=== PATIENT | male | born 1980 | race Caucasian/White ===

== ENCOUNTER → 2017-05-30 | Outpatient (CLI) | payer SELFPAY ==
[2014-02-11 10:29] VITALS: BMI 28.9
[~2017-05-30] MED LIST: ALBU8.5H12 IH; AZIT-18 PO; CEPH500C24 PO; DIPH-740 PO; IBUP-56 PO; IBUP800T37 PO; IOPAMIDOL 76% 75 ML INFUS BTL 75 ML ONE; LEVO-85 PO; METH4TAB66 PO; OMEP-137 PO; OMEP40CA48 PO; PENI-24 PO; PRED-1 PO; PRED20TA6 PO; RANI-318 PO; RANI-324 PO; SUCR1TAB85 PO; TRAZ150T8 PO
--- NOTE | 2017-05-30 11:53 | RADIOLOGY IMAGING REPORT ---
FACILITY: [facility] - [place] PATIENT NAME: Marcio Talavera : 1980 MR: [id number] V: [id number] EXAM DATE: ORDERING PHYSICIAN: BESS ALLEN TECHNOLOGIST: Location: [facility] Patient: Marcio Talavera : 1980 Visit/Account:[id number] Date of Sevice: 05/30/2017 ABDOMEN/PELVIS W/WO CONTRAST HISTORY: Left upper quadrant pain x7 months TECHNIQUE: Axial images acquired through the abdomen/pelvis both with and without IV contrast.. Marleni nal and sagittal reformatting also performed. Dose Lowering Technique One of the following dose optimization techniques was utilized in the performance of this exam: Autom ated exposure control; adjustment of the mA and/or kV according to the patient's size; or use of an i terative reconstruction technique. Specific details can be referenced in the facility's radiology C T exam operational policy. CONTRAST: 75 mL Isovue-370 COMPARISON: None FINDINGS: Visualized lung bases: Negative. Hepatobiliary: Several subcentimeter hypoattenuating lesions right lobe the liver which may represen t cysts although are too small to characterize. This area of probable focal fatty infiltration adjac ent to the falciform ligament Spleen: Borderline enlarged measuring 14.2 x 9.3 x 10.7 cm there are several accessory splenules Adrenals: Negative. Pancreas: Negative. Kidneys ureters and bladder: 2 mm nonobstructing calculus lower pole of the left kidney Genitalia: Negative. GI: The appendix is visualized does not appear inflamed. There is a focal narrowing seen in the sigmoid colon best appreciated on axial image 108 of series 6 and coronal image 65 of series 8 could represent an area of spasm although clinical correlation neede d. There is mild diverticulosis left-sided colon although no CT evidence of acute diverticulitis Vessels/spaces/nodes: Negative. Bones/soft tissues: There are surgical clips in the scrotum. Small umbilical hernia containing fat Additional findings: None pertinent. IMPRESSION: Several subcentimeter hypoattenuating lesions right lobe of the liver may represent cysts although ar e too small to characterize Spleen is borderline enlarged 2 mm nonobstructing calculus lower pole left kidney There is a focal narrowing seen in the sigmoid colon as detailed above which could represent a focal area of spasm although an annular lesion not excluded Mild diverticulosis left-sided colon although no CT evidence of acute diverticulitis Report Dictated By: Taylor Guajardo MD at 05/30/2017 10:24 AM Report E-Signed By: Taylor Guajardo MD at 05/30/2017 11:48 AM WSN:[email or web address]
== END ==
LOC: CT 01:14
PROVIDERS: ATTEND Surgery
DX: N20.0 Calculus of kidney (principal); K76.89 Other specified diseases of liver; R16.1 Splenomegaly, not elsewhere classified; K57.30 Diverticulosis of large intestine without perforation or abscess without bleeding
CPT/HCPCS: 74178; Q9967

== ENCOUNTER 2017-06-27 01:00 | Outpatient (RCR) | payer SELFPAY ==
[2014-02-11 10:29] VITALS: BMI 28.9
[~2017-06-27 01:00] MED LIST changes: +GOLYTE PO; -IOPAMIDOL 76% 75 ML INFUS BTL 75 ML ONE; -RANI-324 PO; +RANI-366 PO
[2017-06-27] MEDS ORDERED: BARIUM SULFATE 340 GM POWD ONE (08:39)
[2017-06-27] MEDS ORDERED: BARIUM SULFATE 176 GM BTL PO ONE (08:39)
--- NOTE | 2017-06-27 17:28 | RADIOLOGY IMAGING REPORT ---
FACILITY: [facility] PATIENT NAME: Marcio Talavera : 1980 MR: [id number] V: [id number] EXAM DATE: ORDERING PHYSICIAN: BESS ALLEN TECHNOLOGIST: Location: [facility] [place] Patient: Marcio Talavera : 1980 Visit/Account:[id number] Date of Sevice: 06/27/2017 Exam type: UPPER GI W/SMALL BOWEL SERIES History: Left upper quadrant pain, postprandial bloating, early satiety Comparison: None. Findings: Double contrast upper GI series was performed with thick and thin barium a small amount of gastroesop hageal reflux was observed. There is no significant narrowing within the esophagus or evidence of mu cosal erosion. The stomach to bulb and duodenal C-loop appeared unremarkable. The barium was then f ollowed throughout the small bowel to the unremarkable terminal ileum. Transit time to the right-kaitlyn ed colon was one hour and 20 minutes. No mucosal abnormalities were identified. There is no evidenc e of extrinsic mass effect or bowel dilatation. The fluoroscopy dose area product was 1636.09 micro- Robert per meter squared IMPRESSION: 1. Small amount of gastroesophageal reflux otherwise unremarkable upper GI series and small bowel fo llow-through Report Dictated By: Taylor Guajardo MD at 06/27/2017 5:20 PM Report E-Signed By: Taylor Guajardo MD at 06/27/2017 5:23 PM WSN:[email or web address]
--- NOTE | 2017-06-30 09:43 | RADIOLOGY IMAGING REPORT ---
FACILITY: [facility] PATIENT NAME: Marcio Talavera : 1980 MR: [id number] V: [id number] EXAM DATE: ORDERING PHYSICIAN: BESS ALLEN TECHNOLOG[place]: [place] [facility] [place] Marcio Tala[place]a : 1980 Visit/Account:[id number] Date of Sevice: 06/30/2017 GALLBLADDER HISTORY: Postprandial bloating COMPARISON: Gallbladder ultrasound January 25, [address] of abdomen pelvis May 30, 2017 FINDINGS: Gallbladder: Unremarkable; no stones or sludge. Liver: Liver appears unremarkable as imaged. The some small hypodensities in the right lobe of the l iver may have been too close to the dome to be evaluated sonographically due to surrounding lung tiss ue. Statistically they likely represent cysts Common duct: Normal, 4.2 mm diameter. Pancreas: Partially obscured by bowel, visualized aspects unremarkable. Right kidney: Negative. Upper abdominal aorta and IVC: Patent. Ascites: None visualized. IMPRESSION: Unremarkable right upper quadrant ultrasound. The small hypodensity seen in the right lobe the liver on the recent CT were not identified although may have been too close to the dome to be visible sonographically. Statistically they likely represe nt cysts Report Dictated By: Taylor Guajardo MD at 06/30/2017 9:19 AM Report E-Signed By: Taylor Guajardo MD at 06/30/2017 9:39 AM WSN:[email or web address]
[2017-07-04] MEDS ORDERED: MULT-1335 PO (12:38)
== END 2017-06-30 18:00 | disposition home or self-care (01) ==
LOC: US 01:00 → EDSTATUS 06-30 16:13 → US 06-30 18:00
PROVIDERS: ATTEND Surgery
DX: R10.12 Left upper quadrant pain (principal); R14.0 Abdominal distension (gaseous); R68.81 Early satiety; K21.0 Gastro-esophageal reflux disease with esophagitis
CPT/HCPCS: 74245; 76705

== ENCOUNTER 2017-07-06 01:16 | Day surgery (SDC) | payer SELFPAY ==
[2014-02-11 10:29] VITALS: Ht 170.2 cm; Wt 85.7 kg
[~2017-07-06] VITALS: Ht 170.2 cm; Wt 85.7 kg
[2017-07-06] VITALS (7 sets, daily range): BP systolic 107–128; BP diastolic 60–87
[~2017-07-06 01:16] MED LIST changes: +MULT-1335 PO
[2017-07-06] MEDS ORDERED: PROPOFOL EMUL(*) 10MG/ML 20 ML 20 ML ONE ×2 (07:26→11:01)
[2017-07-06] MEDS ORDERED: LIDOCAINE/SOD BICARB 8.4% SYR ID ONE (10:15)
[2017-07-06] MEDS ORDERED: NORMOSOL R SOLN(*) 1000 ML BAG 1,000 ML IV PRN (10:15)
--- NOTE | 2017-07-06 11:20 | Short(Outpt) Discharge Summary ---
Discharge Summary Reason for Hosp/Final Diag: (1) Abnormal CT scan, sigmoid colon Status: Acute Hospital Course & Plan: Colonoscopy completed without problems, normal. (2) Abdominal fullness in left upper quadrant Status: Chronic (3) Left sided abdominal pain Status: Chronic Departure Discharge to: Home, Self Care Discharge Instructions Home Meds Active Scripts Peg/Electrolytes (GOLYTELY SOLUTION) 4,000 Ml Soln, 1 GAL PO ONCE, #1 GAL 0 Refills Prov:BESS ALLEN MD 06/14/17 Reported Medications Multivitamin With Minerals (MULTIPLE VITAMIN) 1 Each Tablet, 1 EACH PO QDAY, TAB 07/04/17 Omeprazole (OMEPRAZOLE) 40 Mg Capsule., 40 MG PO QDAY, CAP 05/20/17 Follow up Referrals: General Surgery - 07/26/17 @ Surgery, General with Bess Allen Md You have a follow up appointment scheduled with Dr. Allen on Tuesday, July 26, 2017, at 3: 30pm. Diet: Regular Activity: As Tolerated Special Instructions: Your colonoscopy was completed without problems and your prep was excellent (Good Job!!). I didn't find any cancers, polyps, or inflammation. Your colonoscopy was completely normal. I will see you back in my office on July 26 at 3:30pm and will discuss your symptoms and see what we need to do to help you feel better. BESS ALLEN MD July 06, 2017 11:20
== END 2017-07-06 12:55 | disposition home or self-care (01) ==
LOC: OR 01:16
PROVIDERS: ATTEND Surgery
DX: R10.84 Generalized abdominal pain (principal)
CPT/HCPCS: 00811; 36415; 45378; 83516; J2704